=== PATIENT | male | born 1955 | race Caucasian/White ===

== ENCOUNTER 2019-09-07 05:48 | Observation (INO) ==
--- NOTE | 2019-08-03 22:45 | PAT Medication Instructions ---
Medication Instructions Date of Service August 03, 2019 Home Medications calcium citrate 315 mg-vitamin D3 250 unit tablet 1 tab PO QAM cholecalciferol (vitamin D3) 50 mcg (2,000 unit) capsule 4,000 unit PO QAM cyanocobalamin (vitamin B-12) 1,000 mcg sublingual tablet 1,000 mcg SL QAM epinephrine 0.3 mg/0.3 mL injection, auto-injector 0.3 ml IM PRN levothyroxine 100 mcg tablet 100 mcg PO QAM metformin 500 mg tablet 500 mg PO QAM travoprost 0.004 % eye drops 1 drp OP UD doxycycline hyclate 50 mg capsule 50 mg PO DAILY allopurinol 100 mg PO QAM fluticasone propionate 2 sprays INTRANASAL QAM Continue as directed epinephrine 0.3 mg/0.3 mL injection, auto-injector 0.3 ml IM PRN DO NOT take the morning of surgery calcium citrate 315 mg-vitamin D3 250 unit tablet 1 tab PO QAM cholecalciferol (vitamin D3) 50 mcg (2,000 unit) capsule 4,000 unit PO QAM cyanocobalamin (vitamin B-12) 1,000 mcg sublingual tablet 1,000 mcg SL QAM metformin 500 mg tablet 500 mg PO QAM Take morning of surgery With a small sip of water, OTHERWISE NOTHING TO EAT OR DRINK AFTER MIDNIGHT: levothyroxine 100 mcg tablet 100 mcg PO QAM travoprost 0.004 % eye drops 1 drp OP UD doxycycline hyclate 50 mg capsule 50 mg PO DAILY allopurinol 100 mg PO QAM fluticasone propionate 2 sprays INTRANASAL QAM Other Notes If you have any questions please call us at [phone] or [phone] or [phone] or [phone]
--- NOTE | 2019-08-04 10:34 | Anesthesiology Consultation ---
Date of Service August 04, 2019 Assessment & Plan (1) Encounter for pre-operative examination: - Check BSG AM DOS Chart Review Chart Review: Acceptable Risk for Surgery and Patient seen in Pre Admission Testing Teaching & Discussion Pre-Anesthesia Teaching/Discussion Notes: Instructed NPO after midnight before surgery,except medications with 15 cc of water. Medication instructions provided according to the PAT guidelines. History Surgery Operation Date: 09/07/19 07:30 Proposed Procedures p L3-L4 Laminectomy with Globus Transition - Alejandro Villalba DO Height/Weight Height: 6 ft Weight: 120 kg Allergies Allergy/AdvReac Type Severity Reaction Status Date / Time No Known Drug Allergies Allergy Verified 08/04/19 08:43 Bee sting Allergy Mild Uncoded 08/04/19 08:43 Medications Home Medications Medication Instructions Recorded Confirmed Last Taken calcium citrate 315 mg-vitamin D3 1 tab PO QAM tab 03/18/19 08/04/19 Unknown 250 unit tablet cholecalciferol (vitamin D3) 50 4,000 unit PO QAM cap 03/18/19 08/04/19 Unknown mcg (2,000 unit) capsule cyanocobalamin (vitamin B-12) 1,000 mcg SL QAM tab 03/18/19 08/04/19 Unknown 1,000 mcg sublingual tablet epinephrine 0.3 mg/0.3 mL 0.3 ml IM PRN ea 03/18/19 08/04/19 Unknown injection, auto-injector travoprost 0.004 % eye drops 1 drp OP UD ml 03/18/19 08/04/19 Unknown doxycycline hyclate 50 mg capsule 50 mg PO DAILY 04/06/19 08/04/19 Unknown allopurinol 100 mg PO QAM 07/30/19 08/04/19 Unknown fluticasone propionate 2 sprays INTRANASAL QAM 07/30/19 08/04/19 Unknown levothyroxine 112 mcg tablet 112 mcg PO QAM #90 tab 08/04/19 08/04/19 Unknown metformin 500 mg tablet 1,000 mg PO QAM #180 tab 08/04/19 08/04/19 Unknown Past Medical History Medical History (Updated 08/04/19 @ 10:55 by Sejal Morrison) Arthritis Benign prostate hyperplasia per records Borderline glaucoma Diabetes mellitus, type 2 NIDDM [place] syndrome per records History of kidney stones reason for Allopurinol History of obstructive sleep apnea no device; s/p somnoplasty/UPPP/tonsillectomy Hypertension hx per records Hypothyroidism Obesity Rosacea on doxycycline Spinal stenosis Steatohepatitis, nonalcoholic per records Exercise / Class Metabolic Activity II 4-5 Yardwork/Stairs/Walk up hill Past Family History Family History Grandmother (Paternal) Family history of diabetes mellitus Grandmother (Maternal) Family history of diabetes mellitus Past Surgical History Surgical History History of colonoscopy History of esophagogastroduodenoscopy (EGD) History of ethmoidectomy History of excision of pilonidal cyst History of gastric bypass History of surgery somnoplasty + UPPP + tonsillectomy History of wisdom tooth extraction Past Anesthesia History No Hx of Anesthesia Complications Father: Patient reports after surgery, he had ? cardiac event and "needed to be brought back" but does not know any further details. History of PONV No Hx of PONV and No Hx of Motion Sickness Social History Smoking Status: Never smoker Do You Dip or Chew Tobacco: No Hx Alcohol Use: Yes Alcohol type: beer alcohol intake frequency: a few times a month Hx Substance Use: No substance use type: does not use Review of Systems Remote hx reflux. Patient denies chest pain, shortness of breath, dyspnea on exertion, cough, wheezing, palpitations. Physical Exam Vital Signs VITALS BP 128/81 P 63 TEMP 98.2 SP02 96%RA RESP 18 PHYSICAL Full neck and c-spine range of motion. Full TMJ range of motion. TMD 3 finger breaths Mallampati Score 1 Dentition: missing molars, Possible crown Lungs: clear throughout to auscultation Cardiac: regular rate and rhythm, no murmurs noted Spine: normal Carotid arteries: negative bruit Extremities: no edema Testing Laboratory Results 08/04/19 10:57 PT 12.1 Seconds (9.0-12.0) H 08/04/19 10:57 INR 1.2 (0.9-1.1) H 08/04/19 10:57 APTT 28.8 Seconds (21.0-31.0) 08/04/19 10:57 07/21/19 HGBA1C 6.4% SODIUM 141 POTASSIUM 4.2 CHLORIDE 102 CO2 27 BUN 10 CREATININE 0.81 GLUCOSE 115 Electrocardiogram Date: 08/04/19 Findings: + SB @ (59) Chest X-Ray Date: 08/04/19 Lung volumes are normal. Lungs are clear. There is no pneumothorax or pleural effusion. Cardiac size is normal. Mediastinal contours are normal. There is no evidence for pulmonary edema. Incidental note is made of multiple old left rib fractures. Calcified left upper lobe granuloma is present. Appearance of the chest is unchanged. No acute cardiopulmonary findings. Stress Test Date: 03/16/10 Type: exercise Normal stress ECHO at 11.7 METS. MPHR 86%. No induced chest pain. No EKG changes. Hyperdynamic systolic function of all LV capone and an appropriate diminution of LV chamber size.
--- NOTE | 2019-08-04 11:13 | XRay Report ---
XR chest Pre-admission PA/Lat CLINICAL HISTORY: Preoperative evaluation. COMPARISON STUDY: Chest radiograph May 11, 2011. Chest CT May 25, 2011. FINDINGS: Lung volumes are normal. Lungs are clear. There is no pneumothorax or pleural effusion. Car diac size is normal. Mediastinal contours are normal. There is no evidence for pulmonary edema. Incid ental note is made of multiple old left rib fractures. Calcified left upper lobe granuloma is present . Appearance of the chest is unchanged. IMPRESSION: No acute cardiopulmonary findings. Electronically signed by: Mike Mills M.D. 08/04/2019 11:11 AM
[2019-08-04 13:25] LABS: Basophils # (auto) 0.03 K/uL (0-0.2); Basophils % (auto) 0.4 %; Eosinophils # (auto) 0.09 K/uL (0-0.5); Eosinophils % (auto) 1.2 %; Hematocrit (blood only) 45.5 % (42-52); Hemoglobin 16.2 g/dL (14.0-18.0); Immature Granulocytes # (auto) 0.02 K/uL (0.00-0.02); Immature Granulocytes % (auto) 0.3 %; Lymphocytes # (auto) 2.05 K/uL (1.2-3.4); Lymphocytes % (auto) 26.7 %; Mean Corpuscular Hemoglobin 31.5 pg (25-34); Mean Corpuscular Hgb Conc 35.6 g/dL (32-36); Mean Corpuscular Volume 88.3 fL (80-100); Mean Platelet Volume 11.7 fL (7.4-10.4); Monocytes # (auto) 0.71 K/uL (0.11-0.59); Monocytes % (auto) 9.3 %; Neutrophils # (auto) 4.77 K/uL (1.4-6.5); Neutrophils % (auto) 62.1 %; Platelet Count 126 K/uL (130-400); RDW Coefficient of Variation 13.4 % (11.5-14.5); RDW Standard Deviation 43.2 fL (36.4-46.3); Red Blood Count 5.15 M/uL (4.7-6.1); White Blood Count 7.67 K/uL (4.8-10.8)
[2019-08-04 13:37] LABS: INR 1.2 (0.9-1.1); Partial Thromboplastin Ratio 1.1; Partial Thromboplastin Time 28.8 Seconds (21.0-31.0); Prothrombin Time 12.1 Seconds (9.0-12.0)
--- NOTE | 2019-09-06 20:51 | History and Physical Report ---
DATE OF ADMISSION: 09/07/2019 PREOP HISTORY AND PHYSICAL CHIEF COMPLAINT: Back pain, lower extremity difficulty, paresthesias. HISTORY OF PRESENT ILLNESS: Logan has significant stenosis. He is here for elective spinal surgery. PAST MEDICAL HISTORY: Arthritis, glaucoma, sleep apnea, hyperthyroidism. PAST SURGICAL HISTORY: Colonoscopy, pilonidal cyst removal, gastric bypass surgery. FAMILY HISTORY: Diabetes mellitus. SOCIAL HISTORY: Nonsmoker, nonalcohol user. MEDICATIONS: Listed. REVIEW OF SYSTEMS: Denies any fevers, sweats, chills, any bowel and bladder issues. No pain, cough, sneeze. PHYSICAL EXAMINATION: HEENT: Normal. VITAL SIGNS: Blood pressure 130/80, pulse 80, respiratory rate 16. ABDOMEN: Soft, nontender, bowel sounds present. NEUROLOGIC: He has some decreased motor strength, decreased sensation, decreased range of motion. IMPRESSION: Severe spinal stenosis, lumbar spine. PLAN: Includes decompression laminectomy with Globus TRANSITION lumbar spine, laminectomy, L3-4 with Globus TRANSITION.
[2019-09-07] MEDS ORDERED: SODIUM CHLORIDE 0.9% 1,000 ML IV SCH (06:00)
[2019-09-07] MEDS ORDERED: LR 15ML/HR IV SCH (06:00)
[2019-09-07] MEDS ORDERED: CEFAZOLIN 3000MG 72.5 ML IV SCH (06:00)
[2019-09-07] MEDS ORDERED: MIDAZOLAM HCL 1 MG/ML 2ML VIAL ONE (07:10)
[2019-09-07] MEDS ORDERED: fentaNYL citrate 100 MCG/2 ML VIAL ONE (07:10)
--- NOTE | 2019-09-07 07:20 | History & Physical Bridge Note ---
Date of Service September 07, 2019 History & Physical Bridge Note I have examined the patient, reviewed the History & Physical and in the interval since the performance of the History & Physical I have noted the following changes of clinical significance: no changes noted
[2019-09-07] MEDS ORDERED: THROMBIN FOR SOLN 20000 UNIT KIT ONE ×3 (07:24→08:31)
[2019-09-07] MEDS ORDERED: VANCOMYCIN HCL 1000MG/20ML VIAL ONE (07:24)
[2019-09-07] MEDS ORDERED: GELATIN SPONGE SZ 100 ONE (07:24)
[2019-09-07] MEDS ORDERED: BUPIVACAINE/EPINEPHRINE 0.5% MPF 1:200,000 10 ML VIAL ONE (07:25)
[2019-09-07] MEDS ORDERED: BACITRACIN INJ 50,000 UNIT VIAL ONE (07:25)
[2019-09-07] MEDS ORDERED: HYDROmorphone INJ 2 MG/ML SYR/VIAL ONE (07:58)
[2019-09-07] MEDS ORDERED: DEXAMETHASONE SOD INJ 4 MG/ML VIAL ONE (08:27)
[2019-09-07] MEDS ORDERED: LARYING-O-JET KIT (LTA) ONE (08:27)
[2019-09-07] MEDS ORDERED: ONDANSETRON INJ 2 MG/ML 2 ML VIAL ONE (08:27)
[2019-09-07] MEDS ORDERED: ePHEDrine sulfate 50 MG/ML SYR ONE (08:27)
[2019-09-07] MEDS ORDERED: GLYCOPYRROLATE 0.2 MG/ML VIAL ONE (08:27)
[2019-09-07] MEDS ORDERED: CISATRACURIUM BESYLATE IV SOLN 2 MG/ML 10 ML VIAL IV ONE (08:27)
[2019-09-07] MEDS ORDERED: NEOSTIGMINE METHYLSULFATE 5 MG/5 ML SYR ONE (08:27)
[2019-09-07] MEDS ORDERED: SUCCINYLCHOLINE CHLORIDE 20 MG/ML 10 ML VIAL ONE (08:27)
[2019-09-07] MEDS ORDERED: LIDOCAINE HCL 2% 2 ML VIAL/AMP(20MG/ML) INFIL ONE (08:27)
[2019-09-07] MEDS ORDERED: PROPOFOL IV EMULSION 10 MG/ML 20 ML VIAL IV ONE (08:27)
[2019-09-07] MEDS ORDERED: FLUMAZENIL 0.1 MG/1 ML 10 ML VIAL IV PRN (08:29)
[2019-09-07] MEDS ORDERED: HYDROmorphone INJ 1 MG/ML SYRINGE IV PRN ×2 (08:29→10:30)
[2019-09-07] MEDS ORDERED: ePHEDrine sulfate 50 MG/ML AMP IV PRN (08:29)
[2019-09-07] MEDS ORDERED: LABETALOL HCL IV 5 MG/ML 20ML IV PRN (08:29)
[2019-09-07] MEDS ORDERED: ONDANSETRON INJ 2 MG/ML 2 ML VIAL IV PRN ×2 (08:29→10:30)
[2019-09-07] MEDS ORDERED: NALOXONE HCL 0.4 MG/1 ML VIAL/CARP IV PRN (08:29)
[2019-09-07] MEDS ORDERED: ATROPINE SULFATE 0.1 MG/ML 10ML SYR IV PRN (08:29)
[2019-09-07] MEDS ORDERED: PROMETHAZINE HCL 12.5 MG in SODIUM CHLORIDE 0.9% 50 ML IV PRN (08:29)
--- NOTE | 2019-09-07 09:15 | Fluoroscopy Report ---
FL spine 1V any level HISTORY: 64 years-old Male L3-L4 LAMIECTOMY WITH GLOBUS TRANSITION chronic low back pain COMPARISON: MR lumbar spine 02/20/2019, lumbar spine radiographs 01/07/2019 TECHNIQUE: One spot fluoroscopic images of the lumbar spine was obtained utilizing 7.5 seconds fluoro scopy time FINDINGS: Orthopedic metallic surgical device is noted within the soft tissues posterior to the L3-L4 and L4-L5 levels. Multilevel spondylitic spurring and facet arthrosis redemonstrated. Alignment appears satisf actory on this single image without fracture identified. IMPRESSION: Fluoroscopic assistance as above ACT 112: Negative or not required by law. The above report was generated using voice recognition software. It may contain grammatical, syntax o r spelling errors. Electronically signed by: Yanick Alfred M.D. 09/07/2019 9:13 AM
--- NOTE | 2019-09-07 09:18 | Post Operative Brief Note ---
PG Immediate Post Op with CF Date of Surgery September 07, 2019 Pre & Post Diagnosis Operation Date: 09/07/19 07:30 Pre-Op Diagnosis: Spinal Stenosis Post-Op Diagnosis: Spinal Stenosis I identified the patient and participated in the time-out.: Yes Procedure Operation Date: 09/07/19 07:30 Actual Procedures p L3-L4 Laminectomy With Globus Transition(Not Applicable) - Alejandro Villalba DO Surgeon Alejandro Villalba DO Tamping Machine Operator Road Forms Ga minor Estimated Blood Loss 200 Findings Consistent with Post-Op Diagnosis Specimens Specimen Description: None collected per surgeon Drains Hemovac Drain Anesthesia Type General Overlapping Procedure I was immediately available: during the entire case.
--- NOTE | 2019-09-07 09:21 | Operative Report ---
PG Post Operative Report Pre & Post Diagnosis Operation Date: 09/07/19 07:30 Pre-Op Diagnosis: Spinal Stenosis Post-Op Diagnosis: Spinal Stenosis I identified the patient and participated in the time-out.: Yes Procedure Operation Date: 09/07/19 07:30 Actual Procedures p L3-L4 Laminectomy With Globus Transition(Not Applicable) - Alejandro Villalba DO Surgeon Alejandro Villalba DO Speeder Hand Ga minor Estimated Blood Loss 200 Findings Consistent with Post-Op Diagnosis Specimens No specimen Drains Hemovac Anesthesia Type General Disposition Disposition: Recovery Room Description of Procedure Patient was taken to the operating room a general intubated anesthetic provided to the patient placed prone on a Jayden table scrubbed then prepped then draped sterile. Formal timeout taken We made a skin incision fashion incision centered over the 3 4 and 5 interspace of the lumbar spine with a fairly obese individual there was a significant amount of bleeding. With a fairly difficult fundamental dissection to his spinal canal We took a series of x-rays identifying the 3 4 interspace lumbar spine We carefully dissected free the 3 4 interval lumbar spine taken off the lamina ligamentum flavum. I undercut the facet joints. Decompressed the 3 in the IV nerve roots at this interval. I was pleased with the decompression of the procedure and of the nerve root freedom and was satisfied with our decision making towards a non-fusion of the lumbar spine I felt his facets were well bosses disc was robust there was no instability preoperatively or intraoperatively. We irrigated thoroughly with 500 cc of fluid We closed over Gelfoam vancomycin powder. Blows her right Hemovac drain. 1 Vicryl 2-0 and 3-0 nylon on the skin surfaces sterile dressings applied. Patient returned to PACU improved stable condition Sponge and needle count correct at the close EBL 200 cc No implants used I attest to the content of the Intraoperative Record and any orders documented therein. Any exceptions are noted below.
--- NOTE | 2019-09-07 10:06 | Anesthesiology Progress Note ---
Date of Service September 07, 2019 Anesthesia Post Procedure Vital Signs Vital Signs: Temp Pulse Pulse Resp BP BP Pulse Ox 09/07/19 09:55 36.1 C L 86 14 144/82 H 98 09/07/19 09:45 84 15 141/74 H 98 09/07/19 09:35 85 13 151/70 H 100 09/07/19 09:25 96 H 13 145/87 H 100 09/07/19 09:17 36.2 C L 88 15 152/101 H 99 09/07/19 06:14 36.5 C 68 20 144/94 H 97 Pain Intensity Lower Back: Pain Intensity: 3 Transfer of Care Handoff Completed per policy Notes Mental Status: alert / awake / arousable Patient Amnestic to Procedure: Yes Nausea / Vomiting: adequately controlled Pain: adequately controlled Airway Patency, RR, SpO2: stable & adequate BP & HR: stable & adequate Hydration State: stable & adequate Anesthetic Complications: no major complications apparent
[2019-09-07] MEDS ORDERED: ACETAMINOPHEN 1,000 MG/100 ML VIAL IV PRN (10:30)
[2019-09-07] MEDS ORDERED: KETOROLAC 30 MG/ML VIAL IV PRN (10:30)
[2019-09-07] MEDS ORDERED: OXYCODONE HCL IR 5 MG TAB (IMMEDIATE RELEASE) PO PRN (10:30)
[2019-09-07] MEDS ORDERED: EPINEPHRINE ADULT AUTO-INJECT 0.3 MG SYR IM PRN (10:30)
[2019-09-07] MEDS ORDERED: PHARMACY GLYCEMIC MGMT CONSULT PRN (10:51)
[2019-09-07] MEDS ORDERED: INSULIN GLARGINE SOLOSTAR 100 UNITS/ML 3 ML PEN SC STA (10:55)
--- NOTE | 2019-09-07 11:03 | Pharmacy Report ---
Glycemic Control Consultation - Date of Service September 07, 2019 - Scope Scope: Glycemic Pharmacist consulted by Dr Winter on 09/07/2019 for glycemic control and to write orders per [facility] inpatient glycemic control protocol - Objective Weight: 122 kg Accuchecks BSG (last 24hrs): 09/07/19 09/07/19 06:13 09:27 POC Glucose 146 H 193 H - Recent Pertinent Medications Outpatient Anti-diabetic Regimen: * Metformin * A1c = 6.4 % 07/21/19 - Assessment & Plan Assessment & Plan: ASSESSMENT: * Pt is a 64yo M s/p p L3-L4 Laminectomy. PMHx consistent with BPH, HTN, obesity among others. A1C of 6.4% from 07/21/19 indicative of adequate outpt glycemic management. Per ADA recs his goal A1C < 7.0 or even < 7.5%. He is ordered a type II diabetic diet. He received 8mg IV DXM kayla-operatively. Post-op BSG already elevated. See glycemic plan detailed below: PLAN FOR INPATIENT GLYCEMIC CONTROL: * Holding outpatient oral diabetes medications * Basal insulin * Lantus 40u STAT then one time lantus scale @ HS. See MAR for further details * Bolus insulin * NovoLog per scale ACHS or Q6hrs while NPO * Goal Range: Low 110 mg/dL - High 140 mg/dL * Correction Factor: 15 mg/dL/unit * Nutritional / Prandial insulin per carb ratio of 1 unit per 4 grams CHO consumed * Please note that the plan above was derived based on current level of insulin resistance and hospital stress. These recommendations are appropriate for inpatient admission only. Plan of care upon discharge will need to be reassessed to avoid potential outpatient hypo/hyperglycemia. Thank you.
[2019-09-07] MEDS: SODIUM CHLORIDE 0.9% 1000ML 1,000 ML IV SCH ×2 (11:47→23:15)
[2019-09-07] MEDS: INSULIN ASPART 100 UNITS/ML 3 ML PEN SC SCH ×3 (13:05→21:30)
[2019-09-07] MEDS: CEFAZOLIN 2000MG 2,000 MG/15 ML SYR IV SCH ×2 (15:30→23:15)
[2019-09-07] MEDS: OXYCODONE HCL IR 5 MG TAB (IMMEDIATE RELEASE) PO PRN ×2 (19:43→23:53)
[2019-09-07] MEDS ORDERED: TRAVOPROST Z 0.004% OPH SOLN 2.5 ML BTL OP SCH (21:00)
[2019-09-07] MEDS ORDERED: INSULIN GLARGINE SOLOSTAR 100 UNITS/ML 3 ML PEN SC ONE (21:00)
[2019-09-07] MEDS: DOCUSATE SODIUM 100 MG CAP PO SCH (21:29)
[2019-09-08] MEDS: INSULIN ASPART 100 UNITS/ML 3 ML PEN SC SCH ×4 (00:04→12:07)
[2019-09-08] MEDS ORDERED: LEVOTHYROXINE SODIUM 112 MCG TABLET PO SCH (06:30)
[2019-09-08] MEDS: OXYCODONE HCL IR 5 MG TAB (IMMEDIATE RELEASE) PO PRN ×2 (06:41→11:22)
[2019-09-08] MEDS: CEFAZOLIN 2000MG 2,000 MG/15 ML SYR IV SCH (07:35)
[2019-09-08 07:43] LABS: Estimated Average Glucose 146 mg/dl; Hemoglobin A1C 6.7 % (4.5-5.6)
--- NOTE | 2019-09-08 08:02 | Anesthesiology Progress Note ---
Date of Service September 08, 2019 Anesthesia Post Procedure Vital Signs Vital Signs: Temp Pulse Pulse Resp BP Pulse Ox 09/08/19 07:52 36.9 C 61 16 120/72 95 09/08/19 04:05 36.7 C 66 16 118/73 94 09/07/19 23:10 36.5 C 70 18 131/76 97 09/07/19 19:50 36.5 C 71 16 137/82 98 09/07/19 15:06 36.3 C L 86 16 124/73 97 09/07/19 13:20 36.4 C L 83 17 152/81 H 96 09/07/19 13:09 80 16 137/80 94 09/07/19 12:15 85 18 143/82 H 97 09/07/19 11:18 36.8 C 82 18 142/78 H 97 09/07/19 10:45 36.4 C L 84 18 151/88 H 98 09/07/19 10:15 37.0 C 82 16 150/78 H 98 09/07/19 10:05 80 15 145/73 H 98 09/07/19 09:55 36.1 C L 86 14 144/82 H 98 09/07/19 09:45 84 15 141/74 H 98 09/07/19 09:35 85 13 151/70 H 100 09/07/19 09:25 96 H 13 145/87 H 100 09/07/19 09:17 36.2 C L 88 15 152/101 H 99 Pain Intensity Lower Back: Pain Intensity: 2 Transfer of Care Handoff Completed per policy Notes Mental Status: alert / awake / arousable Patient Amnestic to Procedure: Yes Nausea / Vomiting: adequately controlled Pain: adequately controlled and improving with treatment Anesthetic Complications: no major complications apparent and Pt Satisfied with anesthetic care
[2019-09-08] MEDS: DOCUSATE SODIUM 100 MG CAP PO SCH (08:09)
[2019-09-08] MEDS ORDERED: allopurinoL 100 MG TAB PO SCH (09:00)
[2019-09-08] MEDS ORDERED: TIMOLOL MALEATE 0.5% OP SOLN 5 ML BTL OP SCH (09:00)
[2019-09-08] MEDS ORDERED: INSULIN GLARGINE SOLOSTAR 100 UNITS/ML 3 ML PEN SC ONE (09:00)
[2019-09-08] MEDS ORDERED: FLUTICASONE PROPIONATE NA SPR 16 GM BTL NAE SCH (09:00)
[2019-09-08] MEDS ORDERED: CHOLECALCIFEROL 1,000 UNITS 25 MCG TAB PO SCH (09:00)
[2019-09-08] MEDS ORDERED: CYANOCOBALAMIN 500 MCG TABLET (VITAMIN B-12) PO SCH (09:00)
[2019-09-08] MEDS ORDERED: METFORMIN HCL 500 MG TAB PO SCH (09:00)
--- NOTE | 2019-09-08 11:31 | Discharge Summary ---
SUBJECTIVE: He is alert, oriented, walked about 200 feet last evening. He has no chest pain, shortness of breath. No confusion. No calf tenderness. ASSESSMENT: Status post laminectomy L3-L4 lumbar spine. PLAN: We will discharge him home in improved stable condition. Instructions given. Precautions given. Medication called to his pharmacy. He has a followup appointment. There were issues.
--- NOTE | 2019-09-08 11:35 | Pharmacy Report ---
Pharmacy Glycemic Short Note 2 - Date of Service September 08, 2019 - Glycemic Short BSG Results (Last 24 hours): 09/07/19 09/07/19 09/07/19 12:06 17:21 20:59 POC Glucose 269 H 200 H 176 H 09/07/19 09/08/19 09/08/19 23:51 04:01 07:56 POC Glucose 139 H 128 H 118 H OUTPATIENT ANTIDIABETIC REGIMEN: * Metformin 1 gm daily * A1c 6.7% on 09/08/19 ASSESSMENT: 09/08 * Patient required 50 units of basal and 37 units of bolus insulin yesterday due to intraop Decadron given * BSG has come down nicely this AM. Fasting = 118 mg/dL * Will give small dose of Lantus this AM as I expect steroids to still be on board and patient on metformin at home * Anticipate Decadron to wear off ~dinner so will loosen Novolog parameters with lunch * Discharge orders in for patient to be discharged after lunch today 09/07 * Pt is a 64yo M s/p p L3-L4 Laminectomy. PMHx consistent with BPH, HTN, obesity among others. A1C of 6.4% from 07/21/19 indicative of adequate outpt glycemic management. Per ADA recs his goal A1C < 7.0 or even < 7.5%. He is ordered a type II diabetic diet. He received 8mg IV DXM kayla-operatively. Post-op BSG already elevated. See glycemic plan detailed below: PLAN FOR INPATIENT GLYCEMIC CONTROL: * Hold outpatient oral diabetes medications - okay to resume tomorrow if renal function stable and po intake adequate * Basal insulin * Lantus 10 units x 1 this AM * Bolus insulin - loosen starting with lunch * NovoLog per scale ACHS or Q6hrs while NPO * Goal Range: Low 110 mg/dL - High 140 mg/dL * Correction Factor: 20 mg/dL/unit * Nutritional / Prandial insulin per carb ratio of 1 unit per 6 grams CHO consumed PLAN FOR DISCHARGE: * A1c = 6.7% on 09/08/19 * Goal A1c < 7% for patient's age/comorbidities * No changes recommended to outpatient regimen
[2019-09-09] MEDS ORDERED: bisacodyL 5 MG TABEC PO PRN (06:00)
[2019-09-09] MEDS ORDERED: POLYETHYLENE (MIRALAX) 17 GM PACK PO SCH (09:18)
== END 2019-09-08 14:30 | disposition home or self-care (01) | DRG 517 ==
LOC: ASU 05:48 → 3E 09:23 → INTOOBSV 09:23